=== PATIENT | male | born 1975 | race Caucasian/White ===

== ENCOUNTER 2023-09-01 10:39 | Emergency (ER) | payer BC ==
[~2023-09-01] VITALS: Ht 175.3 cm; Wt 78.5 kg
[2023-09-01 11:10] LABS: BASOPHILS % (AUTO) 0.4 % (0-1); EOSINOPHILS # (AUTO) 0.1 X10'3 (0-0.9); EOSINOPHILS % (AUTO) 1.5 % (0-6); HEMATOCRIT 41.4 % (42.0-52.0); HEMOGLOBIN 14.1 g/dl (14.0-17.9); LYMPHOCYTES # (AUTO) 1.3 X10'3 (1.1-4.8); LYMPHOCYTES % (AUTO) 13.2 % (21-51); MEAN CORPUSCULAR HEMOGLOBIN 28.4 PG (27.0-31.0); MEAN CORPUSCULAR HGB CONC 34.1 g/dL (33.0-36.5); MEAN CORPUSCULAR VOLUME 83.3 FL (78-98); MONOCYTES # (AUTO) 0.8 X10'3 (0-0.9); MONOCYTES % (AUTO) 7.9 % (2-12); NEUTROPHILS # (AUTO) 7.5 X10'3 (1.8-7.7); PLATELET COUNT 271 X10'3 (140-440); RED BLOOD COUNT 4.97 X10'6 (4.70-6.10); RED CELL DISTRIBUTION WIDTH 12.9 % (11.5-14.5); WHITE BLOOD COUNT 9.7 X10'3 (4.5-11.0)
[2023-09-01 11:32] LABS: ALANINE AMINOTRANSFERASE 31 U/L (12-78); ALBUMIN 3.9 G/DL (3.4-5.0); ALKALINE PHOSPHATASE 99 IU/L (46-116); AMYLASE 62 U/L (25-115); ANION GAP 9 (8-16); ASPARTATE AMINO TRANSFERASE 22 U/L (10-37); BILIRUBIN,TOTAL 0.5 MG/DL (0.1-1.0); BLOOD UREA NITROGEN 18 MG/DL (7-18); BUN/CREATININE RATIO 14.5 (10.0-20.0); CALCIUM 8.9 MG/DL (8.5-10.1); CHLORIDE 102 MMOL/L (99-107); CREATININE 1.24 MG/DL (0.60-1.10); GLUCOSE 141 MG/DL (70-104); LIPASE 38 U/L (16-77); POTASSIUM 3.4 MMOL/L (3.5-5.1); SODIUM 140 MMOL/L (135-145); TOTAL CARBON DIOXIDE 28.9 MMOL/L (24-32); TOTAL PROTEIN 7.7 G/DL (6.4-8.2); eCRCL 73 ML/MIN; eGFR 62 ML/MIN
[2023-09-01] MEDS ORDERED: iohexol 300mg/ml 100ml inj. ONE (11:41)
[2023-09-01] MEDS: morphine 2 MG/ML inj. syringe IV PRN (11:43)
[2023-09-01] MEDS: ondansetron/PF 4mg/2ml inj IV ONE (11:44)
[2023-09-01 11:46] LABS: BILIRUBIN,URINE NEGATIVE (Neg); CLARITY,URINE CLEAR (Clear); COLOR,URINE YELLOW (Yellow); GLUCOSE, URINE 250 mg/dl (Neg); KETONES,URINE TRACE mg/dl (Neg); LEUKOCYTE ESTERASE ,URINE NEGATIVE (Neg); NITRITES, URINE NEGATIVE (Neg); OCCULT BLOOD,URINE SMALL (Neg); PH,URINE 8.5 (4.8-8.0); PROTEIN,URINE 30 mg/dl (Neg); UROBILINOGEN,URINE 0.2 E.U/dL (0.2-1.0)
[2023-09-01 11:49] LABS: C-REACTIVE PROTEIN 0.32 MG/DL (0.0-0.5)
[2023-09-01 11:54] LABS: URINE AMPHETAMINE SCREEN NEGATIVE (Neg); URINE BARBITUATE SCREEN NEGATIVE (Neg); URINE BENZODIAZEPINES SCREEN NEGATIVE (Neg); URINE CANNABINOID SCREEN NEGATIVE (Neg); URINE COCAINE SCREEN NEGATIVE (Neg); URINE METHADONE SCREEN NEGATIVE (Neg); URINE PHENCYCLIDINE SCREEN NEGATIVE (Neg)
[2023-09-01 11:56] LABS: UA COLLECTION TYPE CLN CATCH MIDSTREAM
[2023-09-01 11:57] LABS: WBC,URINE 0-4 /HPF (0-4)
[2023-09-01 11:58] LABS: BACTERIA,URINE NONE SEEN /HPF (Neg); SQUAMOUS EPITHELIAL CELL,UR NONE SEEN /LPF (FEW)
[2023-09-01] MEDS: normal saline 1000ML IV soln IVB ONE (12:31)
[2023-09-01] MEDS: diphenhydrAMINE 50 mg/ml inj IV ONE (12:58)
[2023-09-01] MEDS: proCHLORperazine 10 MG/2 ml inj IV ONE (12:59)
[2023-09-01] MEDS: morphine 4 MG/ML inj SYRINge IV ONE (13:00)
[2023-09-01] MEDS ORDERED: ketorolac trometh. 30mg/ml inj. IV ONE (13:05)
[2023-09-01] MEDS: ketorolac tromethamine 15mg/ml inj. IV ONE ×2 (13:27→13:36)
[2023-09-01] MEDS ORDERED: NAPR-56 PO (14:08)
[2023-09-01] MEDS ORDERED: FLO0.4C PO (14:08)
[2023-09-01] MEDS ORDERED: ONDA8TAB13 PO (14:08)
[2023-09-01 14:36] VITALS: BP 158/94; PULSE 77; RESP 13; TEMP 98.6; O2SAT 96
== END 2023-09-01 14:38 | disposition home or self-care (01) ==
LOC: ER 10:40
DX: N20.0 Calculus of kidney (principal); I10 Essential (primary) hypertension
CPT/HCPCS: 36415; 74177; 80053; 80305; 81001; 82150; 83605; 83690; 84145; 85025; 86140; 93005; 96361; 96374; 96375; 96376; 99285; J0780; J1200; J1885; J2270; J2405; J3490; J7030; Q9967